=== PATIENT | male | born 1975 | race Caucasian/White ===

== ENCOUNTER → 2016-11-25 | Emergency (ER) | payer MEDICAID ==
[~2016-11-25] VITALS: Ht 180.3 cm; Wt 81.8 kg
[~2016-11-25] MED LIST: BUPR8TAB SL; DULO60CA7 PO; NAPR500T3 PO; ONDA4TAB8 PO; OXYC1TAB8 PO; PHEN-639 PO; TAMS-8 PO; TEST1.25 TD; [UNRECOGNIZED DRUG - OTHER] PO
[2016-11-25 19:18] VITALS: BP 127/74
== END | disposition home or self-care (01) ==
LOC: EDUNIT# 19:12 → ED 19:13
DX: R51 Headache (principal); R11.2 Nausea with vomiting, unspecified; Z53.21 Procedure and treatment not carried out due to patient leaving prior to being seen by health care provider

== ENCOUNTER → 2016-11-25 | Outpatient (CLI) | payer MEDICAID ==
[2016-11-25 19:30] VITALS: BP 122/79
--- NOTE | 2016-11-25 19:30 | Urgent Care T Sheet Gen (E) ---
Intake General Temperature (Fahrenheit): 97.0 Pulse: 94 Blood Pressure Systolic: 122 Blood Pressure Diastolic: 79 Respirations: 18 SPO2: 99 Chief Complaint: severe headache Source: Patient History of Present Illness Initial Comments Pt is a 41 yo Male that awoke this morning at 4am with a severe headache. Describes the pain as a 9 out of 10 on 10 point pain scale. No other neurologic symptoms. NO history of migraines. Notes that he started vomiting this afternoon. Allergies: Coded Allergies: Penicillins (Unverified Allergy, Severe, hives, 05/25/14) Home Meds Active Scripts Tamsulosin HCl (Flomax)0.4 Mg Cap0.4 Mg PO DAILY #7 CAP Prov:TRAN NAJERA MD 07/04/15 Ondansetron (Zofran ODT)4 Mg Tab.rapdis4 Mg PO Q4H PRN NAUSEA #10 TAB Prov:TRAN NAJERA MD 07/04/15 Oxycodone HCl/Acetaminophen (Oxycodone-Acetaminophen 10-325)1 Each Tablet1 Each PO Q6H PAIN #20 TAB Prov:TRAN NAJERA MD 07/04/15 Reported Medications Buprenorphine HCl 8 Mg Tab.subl8 Mg SL UD #120 07/04/15 Duloxetine HCl (Cymbalta)60 Mg Capsule.dr60 Mg PO DAILY 07/27/14 Testosterone (Androgel)1.25 Gm Gel.packet Td Daily 05/25/14 Respiratory Constitutional Symptoms: See HPI Neurological: See HPI All Other Systems Reviewed Remaining Systems: All other systems reviewed with negative findings Past Oniasjq-Oeipek-Zndrra Hx Surgeries/Hospitalizations Hospitalization/Surgery Hx: testicular ca, carpel tunel Respiratory Respiratory History: None Cardiovascular Cardiovascular History: None Reproductive System Sexually Transmitted Diseases: No Gastrointestinal GI/Endocrine History: None Diabetes Diabetes: No HEENT Impaired Vision: None Hearing Impaired: None Psychosocial Behavior Disorders: None Physical Exam Physical Exam General Appearance: WD/WN No apparent distress Other (Pt in severe pain and very difficult to open his eyes secondary to pain ) Departure Urgent Care Impression Chief Complaint: severe headache Impression: Primary Impression: Headache Qualified Code: R51 - Headache Departure Departed Disposition: To [facility] ED Condition: Stable Referrals: JUNIOR LE MD (PCP) Additional Instructions: Due to the new onset WAKEFIELD and the severity of the WAKEFIELD recommend pt go to ER for further work-up and evaluation. Offered to contact EMS to transport. Pt declined. He has family member with him that will drive him to the ER>. End of report . KULWINDER GERBER Nov 25, 2016 19:30
== END ==
LOC: MHUC 18:40
PROVIDERS: ATTEND Physician Assistant
DX: R51 Headache (principal)

== ENCOUNTER 2017-02-22 05:44 | Emergency (ER) | payer MEDICAID ==
[~2017-02-22] VITALS: Ht 180.3 cm; Wt 78.0 kg
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
--- NOTE | 2017-02-22 05:50 | NUR ---
Pt presents to ER ambulatory with c/o dental abscess. Pt reports having appt to see dentist on Thursday at [facility]. Pt states this has been ongoing for two nights. No other concerns presented.
--- OUTSIDE RECORDS SUMMARY | 2017-02-22 05:54 | XMS REPORT | Continuity of Care Document ---
Author Author [facility] Address Unknown Phone Unavailable Allergies Active Description Code Type Severity Reaction Onset Reported/Identified Relationship to Patient Clinical Status Yes Penicillins [id number] Drug Allergy Severe hives 11/25/2016 Medications Problems [...] Status Pt. Type Provider Facility Loc./Unit Complaint [id number] 07/04/2015 07:30:00 2014 10:29:00 DIS Emergency REINALDO BEARDEN, [facility] ED [id number] 07/27/2014 19:17:00 2013 21:22:00 DIS Emergency EMY BEARDEN, ALEKS [facility] ED [id number] 05/25/2014 00:53:00 2013 03:56:00 DIS Emergency DANA NOONAN DO [facility] ED HSB [id number] 01/11/2014 10:44:00 2013 23:59:59 CLS Outpatient JANET BEARDEN, [facility] RT PARESTESIA [id number] 11/25/2016 19:13:00 ACT Outpatient MARIBELL BEARDEN, [facility] ED [id number] 11/25/2016 18:40:00 ACT Outpatient KULWINDER ROWLAND [facility] [id number] 07/11/2015 16:24:00 Document Registration
[2017-02-22] MEDS ORDERED: PROMETHAZINE 25 MG/ML (PHENERGAN) 1 ML VIAL IM ONE (06:20)
[2017-02-22] MEDS ORDERED: HYDROmorphone 1 MG/ML (DILAUDID) SYRINGE IM ONE (06:20)
[2017-02-22] MEDS ORDERED: ED- CEPHALEXIN 500 MG (KEFLEX) 6 CAPSULES/BTL PO ONE (06:30)
[2017-02-22] MEDS ORDERED: ED- HYDROcodone/ACETAMINOPHEN 5MG/325MG (NORCO) 6 TABLETS/BTL PO ONE (06:45)
[2017-02-22] MEDS ORDERED: HYDR-3702 PO (06:48)
[2017-02-22] MEDS ORDERED: CLIN-78 PO (06:48)
--- NOTE | 2017-02-22 06:55 | NUR ---
Pt dismissed to home with instructions, prepack and prescription. Pt stated his understanding. No other needs or concerns. Pt left ambulatory to POV.
[2017-02-22 07:00] VITALS: BP 125/92
== END 2017-02-22 06:55 | disposition home or self-care (01) ==
LOC: ED 05:48
DX: K04.7 Periapical abscess without sinus (principal)
CPT/HCPCS: 96372; 99282; A9270; J1170; J2550; 99283

== ENCOUNTER 2017-02-23 00:24 | Emergency (ER) | payer MEDICAID ==
[~2017-02-23] VITALS: Ht 180.3 cm; Wt 81.8 kg
[~2017-02-23 00:24] MED LIST changes: +CLIN-78 PO; +HYDR-3702 PO
--- OUTSIDE RECORDS SUMMARY | 2017-02-23 00:29 | XMS REPORT | Continuity of Care Document ---
Author Author [facility] Address Unknown Phone Unavailable Allergies Active Description Code Type Severity Reaction Onset Reported/Identified Relationship to Patient Clinical Status Yes Penicillins [id number] Drug Allergy Severe hives 11/25/2016 Medications Problems [...] PRICILLA Zaman Ot 354.0 07/04/2015 JANET BEARDEN, PRICLILA Zaman Ot 354.0 07/04/2015 JANET BEARDEN, PRICILLA [...] Status Pt. Type Provider Facility Loc./Unit Complaint [id number] 07/04/2015 07:30:00 2014 10:29:00 DIS Emergency REINALDO BEARDEN, [facility] ED [id number] 07/27/2014 19:17:00 2013 21:22:00 DIS Emergency EMY BEARDEN, ALEKS [facility] ED [id number] 05/25/2014 00:53:00 2013 03:56:00 DIS Emergency DAAN NOONAN DO [facility] ED HSB [id number] 01/11/2014 10:44:00 2013 23:59:59 CLS Outpatient JANET BEARDEN, [facility] RT PARESTESIA [id number] 11/25/2016 19:13:00 ACT Outpatient MARIBELL BEARDEN, [facility] ED [id number] 11/25/2016 18:40:00 ACT Outpatient KULWINDER ROWLAND [facility] [id number] 07/11/2015 16:24:00 Document Registration
--- OUTSIDE RECORDS SUMMARY | 2017-02-23 00:30 | XMS REPORT | Continuity of Care Document ---
Author Author [facility] Address Unknown Phone Unavailable Allergies Active Description Code Type Severity Reaction Onset Reported/Identified Relationship to Patient Clinical Status Yes Penicillins [id number] Drug Allergy Severe hives 11/25/2016 Medications Problems Date Dx Coded Attending Type Code Diagnosis Diagnosed By 05/25/2014 DANA NOOANN DO Ot 592.1 CALCULUS OF URETER 05/25/2014 [...] Status Pt. Type Provider Facility Loc./Unit Complaint [id number] 07/04/2015 07:30:00 2014 10:29:00 DIS Emergency REINALDO BEARDEN, [facility] ED [id number] 07/27/2014 19:17:00 2013 21:22:00 DIS Emergency EMY BEARDEN, ALEKS [facility] ED [id number] 05/25/2014 00:53:00 2013 03:56:00 DIS Emergency DANA NOONAN DO [facility] ED HSB [id number] 01/11/2014 10:44:00 2013 23:59:59 CLS Outpatient JANET BEARDEN, [facility] RT PARESTESIA [id number] 11/25/2016 19:13:00 ACT Outpatient MARIBELL BEARDEN, [facility] ED [id number] 11/25/2016 18:40:00 ACT Outpatient KULWINDER ROWLAND [facility] [id number] 07/11/2015 16:24:00 Document Registration
[2017-02-23 00:35] VITALS: BP 135/81
[2017-02-23] MEDS ORDERED: LIDOCAINE PF 1% (XYLOCAINE) 2 ML VIAL INJ ONE (00:50)
[2017-02-23] MEDS ORDERED: cefTRIAXone 1 GM (ROCEPHIN) VIAL IM ONE (00:50)
--- NOTE | 2017-02-23 01:03 | NUR ---
Pt request Ibuprofen for pain. Dr. Reaves notified. New order received.
[2017-02-23] MEDS ORDERED: IBUPROFEN 800 MG (MOTRIN) TAB PO ONE (01:05)
== END 2017-02-23 01:12 | disposition home or self-care (01) ==
LOC: ED 00:25
DX: K04.7 Periapical abscess without sinus (principal)
CPT/HCPCS: 96372; 99282; A9270; J0696; J2001